=== PATIENT | male | born 1970 | race Caucasian/White ===

== ENCOUNTER → 2017-05-31 | Outpatient (CLI) | payer BC ==
--- NOTE | 2017-05-31 07:35 | US ---
EXAMINATION TYPE: US abdomen complete DATE OF EXAM: 05/31/2017 COMPARISON: NONE CLINICAL HISTORY: R74.8 Elevated Liver Enzymes. Pt states he had prior us liver 10 years ago showed f atty liver, large body habitus EXAM MEASUREMENTS: Liver Length: 16.4 cm Gallbladder Wall: 0.2 cm CBD: 0.1 cm Spleen: 9.9 cm Right Kidney: 10.6 x 4.2 x 5.1 cm Left Kidney: 11.0 x 5.3 x 4.3 cm Pancreas: Tail obscured by overlying bowel gas Liver: Liver echotexture is coarse. The liver is poorly penetrated by the ultrasound beam. Liver is n ot enlarged. Gallbladder: Appears contracted. Evidence for sonographic Harris's sign: No CBD: wnl Spleen: wnl Right Kidney: No hydronephrosis or masses seen Left Kidney: No hydronephrosis or masses seen Upper IVC: Unremarkable in the portions seen Abd Aorta: Unremarkable in its visualized portions. There is no ascites. Kidneys show normal morphology. IMPRESSION: Findings may represent hepatic steatosis or hepatocellular disease. Contracted rosie ramos Some limitations to the exam.
== END | disposition home or self-care (01) ==
LOC: RADUSWWP 07:01
PROVIDERS: ATTEND Family Medicine
DX: R74.8 Abnormal levels of other serum enzymes (principal)
CPT/HCPCS: 76700

== ENCOUNTER → 2018-08-28 | Outpatient (CLI) | payer BC ==
--- NOTE | 2018-08-28 11:41 | US ---
EXAMINATION TYPE: US scrotum with doppler. Grayscale and color Doppler Duplex imaging performed of t ruthie scrotum. DATE OF EXAM: 08/28/2018 COMPARISON: NONE CLINICAL HISTORY: R39.89 Large Testicles. Left testicle swelling x 6 months. No pain. No injury. EXAM MEASUREMENTS: TESTICLES: Right Testicle: 3.7 x 3.8 x 2.8 cm Left Testicle: 5.5 x 3.4 x 3.2 cm EPIDIDYMIS HEAD: Right Epididymis: 1.3 x 0.7 x 1.2 cm Left Epididymis: 1.2 x 0.8 x 0.9 cm Doppler performed to assess for testicular vascularity; good bilateral color flow and waveforms are s een. There is no evidence of testicular torsion. Presence of hydroceles: Large left, small right Presence of varicoceles: no Left epididymal cyst = 0.4 x 0.3 x 0.5 cm IMPRESSION: 1. Hydroceles as noted above.
== END | disposition home or self-care (01) ==
LOC: RADUSWWP 11:03
PROVIDERS: ATTEND Family Medicine
DX: N43.3 Hydrocele, unspecified (principal)
CPT/HCPCS: 76870; 93975

== ENCOUNTER 2019-08-25 10:48 | Day surgery (SDC) | payer BC, OTHER ==
[2019-08-21 17:33] VITALS: BMI 31.8
[~2019-08-25 10:48] MED LIST: LACTATED RINGERS 1,000 ML IV SCH
[2019-08-25 10:58] VITALS: RESP 16; TEMP 96.9
[2019-08-25] MEDS ORDERED: LIDOCAINE 1% 20 ML VIAL (10MG/ML) FOR IV START INTRADERMA ONE (11:07)
[2019-08-25] MEDS ORDERED: PROPOFOL 10 MG/ML 20 ML VIAL IV ONE (12:04)
[2019-08-25] MEDS ORDERED: LIDOCAINE 1% INJ 10MG/ML (20 ML MDV) ONE (12:04)
[2019-08-25 12:37] VITALS: PULSE 75
--- NOTE | 2019-08-25 12:38 | P.PCN ---
Date of Procedure: 08/25/19 Description of Procedure: BRIEF HISTORY: Patient is a 49-year-old pleasant male scheduled for an elective colonoscopy as a part of screening for malignant neoplasm of the colon. Patient reports last colonoscopy approximately 7 years ago significant for polyps. He is also has sigmoid resection secondary to diverticular disease. PROCEDURE PERFORMED: Colonoscopy with polypectomy. PREOPERATIVE DIAGNOSIS: And screening for malignant neoplasm of the colon, last colonoscopy 7 years ago. ESTIMATED BLOOD LOSS: Minimal. IV sedation per Anesthesia. PROCEDURE: After informed consent was obtained, the patient, was brought into the endoscopy unit. IV sedation was administered by Anesthesia under continuous monitoring. Digital rectal examination was normal. Initially the Olympus CF-190 flexible video colonoscope was then inserted in the rectum, gradually advanced into the cecum without any difficulty. Careful examination was performed as the scope was gradually being withdrawn. Ileocecal valve and the appendiceal orifice were visualized and appeared normal. Prep was excellent. Mucosa of the cecum, ascending colon, transverse colon, descending colon, and rectum appeared normal. Anatomy consistent with prior sigmoid resection and reanastomosis appeared intact. Mild scattered diverticular disease noted in the left colon. Diminutive 2 mm transverse colon polyp removed with cold forcep polypectomy. Diminutive 1 mm descending colon polyp removed with cold forcep polypectomy. Flat tubulovillous appearing rectal polyp measuring approximately 11 mm removed with hot snare polypectomy. Retroflexion was performed in the rectum and no lesions were seen. The patient tolerated the procedure well. IMPRESSION: 2 diminutive polyps removed with cold forceps from the transitional and descending colon. Flat rectal polyp removed with hot snare polypectomy. Anatomy consistent with prior sigmoid resection and reanastomosis intact. Mild left colonic diverticulosis. RECOMMENDATIONS: Findings of this examination were discussed with the patient and his family. Okay to resume diet. Await pathology from polypectomy. Anticipate repeat colonoscopy in 3 years for high risk colon polyps.
[2019-08-25 12:51] VITALS: BP 108/72
== END 2019-08-25 13:10 | disposition home or self-care (01) ==
LOC: ORWHC2ENDO 10:48
PROVIDERS: ATTEND Internal Medicine
DX: Z12.11 Encounter for screening for malignant neoplasm of colon (principal); D12.3 Benign neoplasm of transverse colon; D12.8 Benign neoplasm of rectum; K63.5 Polyp of colon; K57.30 Diverticulosis of large intestine without perforation or abscess without bleeding; K21.9 Gastro-esophageal reflux disease without esophagitis; Z80.0 Family history of malignant neoplasm of digestive organs; Z88.0 Allergy status to penicillin; Z79.899 Other long term (current) drug therapy; Z98.890 Other specified postprocedural states; Z90.49 Acquired absence of other specified parts of digestive tract; Z86.010 Personal history of colon polyps
CPT/HCPCS: 88305; 45380; 45385; J2001; J2704

== ENCOUNTER → 2021-07-20 | Outpatient (CLI) | payer OTHER ==
--- NOTE | 2021-07-21 12:46 | P.STRESS ---
- Stress Test Note Stress Test Results/Findings: Exam Performed: stress echo exercise with con Exam Date: 07/20/21 Reason for Exam: CP Height: 5 ft 11 in Weight: 245 kg Protocol: DAIANA Stage: 3 Duration of Exercise: 7:10 Resting Heart Rate: 70 Resting Blood Pressure: 139/56 Maximum Achieved Heart Rate: 159 Maximum Achieved Blood Pressure: 201/59 85% PMHR: 142 100% PMHR: 169 METS: 6.7 Technologist Comment: Stress Test Results/Findings: Patient underwent exercise stress echo with a Daiana protocol treadmill stress test. Patient exercised into Stage 3 for a total of 7 minutes 10 seconds reaching a total of 6.7 METS. Patient's maximum heart rate was 159 which represented 95% age-predicted maximum heart rate. Stress EKG portion: At baseline patient's EKG showed normal sinus rhythm, normal axis, no significant ST or T wave abnormalities. At peak exercise, EKG showed nondiagnostic 1mm flat ST depressions in the inferior and lateral leads. Stress echo portion: 2-D echocardiogram was performed in the parasternal long, personal short, apical 2 and apical four-chamber views at rest, peak exercise and in recovery. At baseline, echocardiogram showed left ventricular ejection fraction 60% without wall motion abnormalities. With peak exercise, echocardiogram shows improvement in left ventricular ejection fraction, increase contractility, decrease in left ventricular end systolic dimension without wall motion abnormalities consistent with a normal response to exercise. Conclusions: 1. Normal echo response to exercise without evidence of inducible ischemia. 2. Nondiagostic EKG portion. 3. Fair exercise capacity. 4. Normal EF 60%
== END | disposition home or self-care (01) ==
LOC: RADNMMAIN 09:33
PROVIDERS: ATTEND Family Medicine
DX: R07.9 Chest pain, unspecified (principal)
CPT/HCPCS: 93351; Q9950

== ENCOUNTER → 2024-02-29 | Outpatient (CLI) | payer OTHER ==
--- NOTE | 2024-02-29 12:20 | US ---
EXAMINATION TYPE: US liver DATE OF EXAM: 02/29/2024 COMPARISON: US 2017 CLINICAL INDICATION: Male, 53 years old with history of R74.8 ABNORMAL LEVELS OF OTHER SERUM ENZYMES; TECHNIQUE: Multiple sonographic images of the right upper quadrant are obtained. FINDINGS: EXAM MEASUREMENTS: Liver Length: 21.2 cm Gallbladder Wall: 0.2 cm CBD: 0.4 cm Right Kidney: 10.5 x 5.6 x 6.2 cm Pancreas: visualized portions wnl, limited by overlying midline bowel gas Liver: enlarged, increased attenuation, decreased visualization of vessels suggestive of fatty infil trate Gallbladder: wnl Evidence for sonographic Harris's sign: no CBD: visualized portions wnl, limited by overlying bowel gas Right Kidney: wnl IMPRESSION: Unremarkable
== END | disposition home or self-care (01) ==
LOC: RADUSWWP 06:52
PROVIDERS: ATTEND Family Medicine
DX: R74.8 Abnormal levels of other serum enzymes (principal)
CPT/HCPCS: 76705

== ENCOUNTER 2024-05-02 07:55 | Day surgery (SDC) | payer OTHER ==
[2024-04-29 11:28] VITALS: BMI 32.8
[2024-05-02 08:11] VITALS: TEMP 97
[2024-05-02] MEDS: LACTATED RINGERS 1,000 ML IV SCH (08:15)
[2024-05-02] MEDS: IV FLUID CONTINUATION 1,000 ML IV ONE (08:17)
[2024-05-02] MEDS ORDERED: PROPOFOL 10 MG/ML 20 ML VIAL IV ONE (09:07)
--- NOTE | 2024-05-02 09:28 | P.PCN ---
Date of Procedure: 05/02/24 Procedure(s) Performed: BRIEF HISTORY: Patient is a 53-year-old pleasant male scheduled for an elective colonoscopy as a part of colorectal neoplasia. His grandfather was diagnosed with colon cancer at age 74 and maternal aunt at age 55. He has by history of sigmoid colectomy for sigmoid diverticulitis. PROCEDURE PERFORMED: Colonoscopy. PREOPERATIVE DIAGNOSIS: Screening for colon cancer and family history of colon cancer. IV sedation per Anesthesia. PROCEDURE: After informed consent was obtained, the patient, was brought into the endoscopy unit. IV sedation was administered by Anesthesia under continuous monitoring. Digital rectal examination was normal. Initially the Olympus CF-160 flexible video colonoscope was then inserted in the rectum, gradually advanced into the cecum without any difficulty. Careful examination was performed as the scope was gradually being withdrawn. Ileocecal valve and the appendiceal orifice were visualized and appeared normal. Prep was excellent. Mucosa of the cecum, ascending colon, transverse colon, descending colon, sigmoid colon, and rectum appeared normal. Scattered sigmoid diverticulosis seen. Anastomosis located 20 cm from the anal verge that appeared normal retroflexion was performed in the rectum and no lesions were seen. The patient tolerated the procedure well. IMPRESSION: Normal-appearing colon from rectum to cecum with no evidence of colorectal neoplasia. Scattered sigmoid diverticulosis. RECOMMENDATIONS: Findings of this examination were discussed with the patient as well as his family. He was advised to have repeat screening colonoscopy in 5 years because of the family history of colon cancer.
[2024-05-02 09:32] VITALS: RESP 16
[2024-05-02 09:51] VITALS: BP 98/77; PULSE 80
== END 2024-05-02 09:59 | disposition home or self-care (01) ==
LOC: ORWHC2ENDO 07:55
PROVIDERS: ATTEND Internal Medicine Gastroenterology
DX: K57.32 Diverticulitis of large intestine without perforation or abscess without bleeding (principal); K21.9 Gastro-esophageal reflux disease without esophagitis; G47.33 Obstructive sleep apnea (adult) (pediatric); Z80.0 Family history of malignant neoplasm of digestive organs; Z90.49 Acquired absence of other specified parts of digestive tract; Z88.0 Allergy status to penicillin; Z79.899 Other long term (current) drug therapy
CPT/HCPCS: 45378; J2704